=== PATIENT | female | born 1955 | race Caucasian/White ===

== ENCOUNTER 2017-01-07 15:27 | Emergency (ER) | payer MEDICARE ==
[~2017-01-07] VITALS: Ht 162.6 cm; Wt 92.1 kg
[2017-01-07 15:30] VITALS: BP_SYST 126
--- NOTE | 2017-01-07 15:30 | NUR ---
ER Dr. Delacruz at bedside examining patient.
--- NOTE | 2017-01-07 15:30 | NUR ---
Pt was brought to bed 6 by BLS and report was given to Fish
--- NOTE | 2017-01-07 15:45 | NUR ---
Pt presents to ED c/o urinary frequency and R flank pain since Friday.Pt denies N/V or dysuria.
[2017-01-07] MEDS ORDERED: NACL 0.9% 1,000 ML IV ONE (16:17)
[2017-01-07] MEDS ORDERED: KETOROLAC TROMETHAMINE 30 MG VIAL IVP ONE (16:30)
--- NOTE | 2017-01-07 16:42 | NUR ---
Pt went to radiology in stable condition.
[2017-01-07 16:50] LABS: BILIRUBIN,URINE NEGATIVE (NEGATIVE); BLOOD, URINE 1+ (NEGATIVE); CLARITY/URINE CLEAR (CLEAR); COLOR,URINE YELLOW (YELLOW); GLUCOSE,URINE NEGATIVE (NEGATIVE); KETONES,URINE NEGATIVE (NEGATIVE); LEUKOCYTE ESTERASE ,URINE NEGATIVE (NEGATIVE); NITRITE, URINE NEGATIVE (NEGATIVE); PROTEIN URINE NEGATIVE (NEGATIVE); UROBILINOGEN,URINE 0.2 (0.2-1.0)
--- NOTE | 2017-01-07 16:53 | NUR ---
Pt returned from Rad dept tolerated well.
--- NOTE | 2017-01-07 17:00 | NUR ---
# 20 gauge angiocath placed to RAC. Use of asceptic technique. Opsite placed over site. Blood for lab drawn from site. Flushed with 10 cc of normal saline. No evidence of infiltration noted. Patient tolerated well.
--- NOTE | 2017-01-07 17:01 | NUR ---
Pt medicated tolerated well
[2017-01-07 17:12] LABS: BACTERIA,URINE FEW /HPF (None Seen); MUCUS,URINE 1+ /LPF (None Seen); RBC,URINE 0-3 /HPF (0-3); WBC,URINE 0-3 /HPF (0-3)
[2017-01-07 17:50] VITALS: BP_SYST 121
--- NOTE | 2017-01-07 17:50 | NUR ---
Patient given written and verbal discharge instructions and verbalizes understanding. ER MD discussed with patient the results and treatment provided. Patient in stable condition. ID arm band removed. IV catheter removed intact and dressing applied, no active bleeding. Rx of motrin given. Patient educated on pain management and to follow up with PMD. Pain Scale 2. Opportunity for questions provided and answered.
== END 2017-01-07 17:50 | disposition home or self-care (01) ==
LOC: SED 15:27
DX: R10.9 Unspecified abdominal pain (principal); I10 Essential (primary) hypertension; E11.9 Type 2 diabetes mellitus without complications; Z98.890 Other specified postprocedural states
CPT/HCPCS: 74176; 81000; 96361; 96374; 99285; J1885; J7030